=== PATIENT | male | born 2005 | race Caucasian/White ===

== ENCOUNTER 2023-01-05 11:50 | Inpatient (IN) | payer OTHER ==
[2023-01-05] MEDS ORDERED: HEPARIN SODIUM 1,000 UN/ML (10ML VL) IV PRN (12:28)
[2023-01-05] MEDS ORDERED: fentaNYL (PF) 50 MCG/ML 2 ML AMP IVP STA (12:29)
--- NOTE | 2023-01-05 12:40 | ED ---
SOB HPI - General Chief Complaint: Shortness of Breath Stated Complaint: PE Time Seen by Provider: 01/05/23 12:00 Source: patient, EMS Mode of arrival: EMS Limitations: no limitations - History of Present Illness Initial Comments: 17-year-old male with history of acetabular fracture while playing kickball at the end of November who presents to the emergency department from [facility]. Patient had surgery on the at [facility]. He has been residing at home and is nonweightbearing on the right lower extremity however is up with a walker. He was woken up at 3 AM this morning with significant pleuritic chest pain. He went into [facility] where CT was done there which demonstrates extensive pulmonary emboli present extending from the right main pulmonary artery to several segmental and subsegmental branches. Pulmonary blad ena also seen in the sacrum and subsegmental branches of the left lung. Right lower lobe peripheral groundglass opacities which may represent infarct. BNP was 49. Troponin 4.31 (normal value 0-76) - Related Data Home Medications Medication Instructions Recorded Confirmed oxyCODONE HCL [OxyIR] 5 mg PO Q6H PRN 01/05/23 01/08/23 Apixaban [Eliquis Starter Pack See Taper PO DIRECTED 01/08/23 01/08/23 (for VTE)] Previous Rx's Medication Instructions Recorded Acetaminophen Tab [Tylenol] 1,000 mg PO Q6HR PRN tab 01/07/23 traMADol HCl [Ultram] 50 mg PO QID PRN #9 tab 01/07/23 Levofloxacin [Levaquin] 750 mg PO DAILY 5 Days #5 tab 01/08/23 Allergies Allergy/AdvReac Type Severity Reaction Status Date / Time indomethacin Allergy Rash/Hives Verified 01/08/23 17:07 Review of Systems ROS Statement: Those systems with pertinent positive or pertinent negative responses have been documented in the HPI. ROS Other: All systems not noted in ROS Statement are negative. Past Medical History Past Medical History: No Reported History History of Any Multi-Drug Resistant Organisms: None Reported Past Surgical History: Orthopedic Surgery Past Psychological History: No Psychological Hx Reported Smoking Status: Never smoker Past Alcohol Use History: None Reported Past Drug Use History: None Reported - Past Family History Father Family Medical History: Hypertension Additional Family Medical History / Comment(s): skin CA General Exam Limitations: no limitations General appearance: alert, in no apparent distress Head exam: Present: atraumatic, normocephalic, normal inspection Eye exam: Present: normal appearance, PERRL, EOMI. Absent: scleral icterus, conjunctival injection, periorbital swelling ENT exam: Present: normal exam, mucous membranes moist Neck exam: Present: normal inspection. Absent: tenderness, meningismus, lymphadenopathy Respiratory exam: Present: normal lung sounds bilaterally. Absent: respiratory distress, wheezes, rales, rhonchi, stridor Cardiovascular Exam: Present: regular rate, normal rhythm, normal heart sounds. Absent: systolic murmur, diastolic murmur, rubs, gallop, clicks GI/Abdominal exam: Present: soft, normal bowel sounds. Absent: distended, tenderness, guarding, rebound, rigid Extremities exam: Present: normal inspection, full ROM, normal capillary refill. Absent: tenderness, pedal edema, joint swelling, calf tenderness Back exam: Present: normal inspection Neurological exam: Present: alert, oriented X3, CN II-XII intact Psychiatric exam: Present: normal affect, normal mood Skin exam: Present: warm, dry, intact, normal color. Absent: rash Course Vital Signs 01/05/23 01/05/23 01/05/23 11:57 15:09 15:33 Temperature 98.2 F 98.7 F Pulse Rate 72 76 Pulse Rate [ 77 Pulse Oximetery ] Respiratory 18 18 18 Rate Blood Pressure 118/79 117/70 Blood Pressure 121/63 [Right Arm] O2 Sat by Pulse 99 100 99 Oximetry - Reevaluation(s) Reevaluation #1: Dr. Liriano in ED to evaluate patient 01/05/23 12:40 Medical Decision Making - Medical Decision Making Was pt. sent in by a medical professional or institution (, PA, [employer] STRAIGHTENER, urgent care, hospital, or penitentiary...) When possible be specific @ -yes[facility] Did you speak to anyone other than the patient for history (EMS, parent, family, police, friend...)? What history was obtained from this source @ -Transferring physician Did you review nursing and triage notes (agree or disagree)? Why? @ -I reviewed and agree with nursing and triage notes Were old charts reviewed (outside hosp., previous admission, EMS record, old EKG, old radiological studies, urgent care reports/EKG's, penitentiary records)? Report findings @ -I reviewed chart from [facility] Differential Diagnosis (chest pain, altered mental status, abdominal pain women, abdominal pain men, vaginal bleeding, weakness, fever, dyspnea, syncope, headache, dizziness, GI bleed, back pain, seizure, CVA, palpatations, mental health, musculoskeletal)? @ -acs, stemi, nstemi, pe, dvt EKG interpreted by me (3pts min.). @ -Yes and demonstrates sinus rhythm with rate of 66. WA interval 172. QRS 98. QTC of 367. Inverted T waves with ST depression V1 and V2. ST elevation in 2, 3, aVF consistent with early re-pole X-rays interpreted by me (1pt min.). @ -no CT interpreted by me (1pt min.). @ -no U/S interpreted by me (1pt. min.). @ -yes, echo completed What testing was considered but not performed or refused? (CT, X-rays, U/S, labs)? Why? @ -None What meds were considered but not given or refused? Why? @ -None Did you discuss the management of the patient with other professionals (professionals i.e. DrMehul, PA, [employer] STRAIGHTENER, lab, RT, psych nurse, social work coordinator, chief legal officer, teacher, planned giving officer, outpatient case manager)? Give summary @ -yes, admitting physician Dr. polo and dr liriano Was smoking cessation discussed for >3mins.? @ -No Was critical care preformed (if so, how long)? @ -No Were there social determinants of health that impacted care today? How? (Ho melessness, low income, unemployed, alcoholism, drug addiction, transportation, low edu. Level, literacy, decrease access to med. care, skilled nursing, rehab)? @ -No Was there de-escalation of care discussed even if they declined (Discuss DNR or withdrawal of care, Hospice)? DNR status @ -No What co-morbidities impacted this encounter? (DM, HTN, Smoking, COPD, CAD, Cancer, CVA, ARF, Chemo, Hep., AIDS, mental health diagnosis, sleep apnea, morbid obesity)? @ -none Was patient admitted / discharged? Hospital course, mention meds given and route, prescriptions, significant lab abnormalities, going to OR and other pertinent info. @ -Upon arrival patient is placed in room 26. I did review his transfer packet. I repeat laboratory studies at our facility. He is saturating 100% on room air. Called and spoke with Dr. Liriano. He does present to the ED to evaluate the patient. Request a stat echo. Patient will be admitted to [facility]. Spoke with Dr. Polo who agreed to admit the patient. patient transferred to the floor in stable condition on a heparin drip Undiagnosed new problem with uncertain prognosis? @ -Yes Drug Therapy requiring intensive monitoring for toxicity (Heparin, Nitro, Insulin, Cardizem)? @ -yes, heparin Were any procedures done? @ -No Diagnosis/symptom? @ -acute chest pain, acute pe Acute, or Chronic, or Acute on Chronic? @ -acute Uncomplicated (without systemic symptoms) or Complicated (systemic symptoms)? @ -complicated Side effects of treatment? @ -allergic reaction, sedation, bleeding Exacerbation, Progression, or Severe Exacerbation? @ -No Poses a threat to life or bodily function? How? (Chest pain, [place], [place], pneumonia, PE, COPD, DKA, ARF, appy, cholecystitis, CVA, Diverticulitis, Homicidal, Suicidal, threat to staff... and all critical care pts) @ -yes - pe can cause heart strain - Lab Data Result diagrams: 01/06/23 07:04 01/06/23 07:04 Lab Results 01/05/23 01/05/23 01/05/23 Range/Units 12:59 12:59 12:59 WBC 6.7 (4.0-11.0) k/uL RBC 3.79 L (4.30-5.90) m/uL Hgb 12.1 L (13.0-17.5) gm/dL Hct 36.2 L (39.0-53.0) % MCV 95.5 (80.0-100.0) fL MCH 32.0 (25.0-35.0) pg MCHC 33.5 (31.0-37.0) g/dL RDW 13.3 (11.5-15.5) % Plt Count 223 (150-450) k/uL MPV 7.9 Neutrophils % 67 % Lymphocytes % 23 % Monocytes % 6 % Eosinophils % 3 % Basophils % 0 % Neutrophils # 4.5 (1.3-7.7) k/uL Lymphocytes # 1.5 (1.0-4.8) k/uL Monocytes # 0.4 (0-1.0) k/uL Eosinophils # 0.2 (0-0.7) k/uL Basophils # 0.0 (0-0.2) k/uL PT 11.3 (9.0-12.0) sec INR 1.1 (<1.2) APTT 39.4 H (22.0-30.0) sec Sodium 137 (137-145) mmol/L Potassium 4.6 (3.5-5.1) mmol/L Chloride 102 (98-107) mmol/L Carbon Dioxide 26 (22-30) mmol/L Anion Gap 9 mmol/L BUN 18 (9-20) mg/dL Creatinine 0.79 (0.66-1.25) mg/dL Est GFR (CKD-EPI)AfAm >90 (>60 ml/min/1.73 sqM) Est GFR (CKD-EPI)NonAf >90 (>60 ml/min/1.73 sqM) Glucose 93 (74-99) mg/dL Calcium 9.2 (8.4-10.2) mg/dL Total Bilirubin 0.7 (0.2-1.3) mg/dL AST 24 (17-59) U/L ALT 17 (4-49) U/L Alkaline Phosphatase 48 (38-126) U/L Troponin I (0.000-0.034) ng/mL NT-Pro-B Natriuret Pep pg/mL Total Protein 7.3 (6.3-8.2) g/dL Albumin 4.0 (3.5-5.0) g/dL 01/05/23 01/05/23 Range/Units 12:59 12:59 WBC (4.0-11.0) k/uL RBC (4.30-5.90) m/uL Hgb (13.0-17.5) gm/dL Hct (39.0-53.0) % MCV (80.0-100.0) fL MCH (25.0-35.0) pg MCHC (31.0-37.0) g/dL RDW (11.5-15.5) % Plt Count (150-450) k/uL MPV Neutrophils % % Lymphocytes % % Monocytes % % Eosinophils % % Basophils % % Neutrophils # (1.3-7.7) k/uL Lymphocytes # (1.0-4.8) k/uL Monocytes # (0-1.0) k/uL Eosinophils # (0-0.7) k/uL Basophils # (0-0.2) k/uL PT (9.0-12.0) sec INR (<1.2) APTT (22.0-30.0) sec Sodium (137-145) mmol/L Potassium (3.5-5.1) mmol/L Chloride (98-107) mmol/L Carbon Dioxide (22-30) mmol/L Anion Gap mmol/L BUN (9-20) mg/dL Creatinine (0.66-1.25) mg/dL Est GFR (CKD-EPI)AfAm (>60 ml/min/1.73 sqM) Est GFR (CKD-EPI)NonAf (>60 ml/min/1.73 sqM) Glucose (74-99) mg/dL Calcium (8.4-10.2) mg/dL Total Bilirubin (0.2-1.3) mg/dL AST (17-59) U/L ALT (4-49) U/L Alkaline Phosphatase (38-126) U/L Troponin I <0.012 (0.000-0.034) ng/mL NT-Pro-B Natriuret Pep 48 pg/mL Total Protein (6.3-8.2) g/dL Albumin (3.5-5.0) g/dL Disposition Clinical Impression: Pleuritic chest pain, Pulmonary embolism and infarction Disposition: ADMITTED IP TO THIS HOSP Condition: Fair Is patient prescribed a controlled substance at d/c from ED?: No Time of Disposition: 12:37 Decision to Admit Reason: Admit from EC Decision Date: 01/05/23 Decision Time: 12:37
[2023-01-05 13:11] LABS: Basophils % (A) 0 %; Eosinophils # (A) 0.2 k/uL (0-0.7); Eosinophils % (A) 3 %; HCT 36.2 % (39.0-53.0); HGB 12.1 gm/dL (13.0-17.5); Lymphocytes # (A) 1.5 k/uL (1.0-4.8); Lymphocytes % (A) 23 %; MCHC 33.5 g/dL (31.0-37.0); MCV 95.5 fL (80.0-100.0); Mean Platelet Volume 7.9; Monocytes # (A) 0.4 k/uL (0-1.0); Monocytes % (A) 6 %; Neutrophils # (A) 4.5 k/uL (1.3-7.7); Neutrophils % (A) 67 %; Platelet Count 223 k/uL (150-450); RBC 3.79 m/uL (4.30-5.90); RDW 13.3 % (11.5-15.5); WBC 6.7 k/uL (4.0-11.0)
[2023-01-05] MEDS: HEPARIN SOD,PORK IN 0.45% NACL 25,000 UNIT in 0.45% NACL 1 250ML.BAG IV SCH (13:13)
[2023-01-05 13:28] LABS: INR 1.1 (<1.2); Partial Thromboplastin Time 39.4 sec (22.0-30.0); Prothrombin Time 11.3 sec (9.0-12.0)
[2023-01-05 13:58] LABS: ALT 17 U/L (4-49); AST 24 U/L (17-59); African American GFR (CKD) >90 (>60 ml/min/1.73 sqM); Alkaline Phosphatase 48 U/L (38-126); Anion Gap 9 mmol/L; Blood Urea Nitrogen 18 mg/dL (9-20); Calcium 9.2 mg/dL (8.4-10.2); Carbon Dioxide 26 mmol/L (22-30); Chloride 102 mmol/L (98-107); Glucose 93 mg/dL (74-99); Non-African American GFR(CKD) >90 (>60 ml/min/1.73 sqM); Potassium 4.6 mmol/L (3.5-5.1); Sodium 137 mmol/L (137-145); Total Bilirubin 0.7 mg/dL (0.2-1.3); Total Protein 7.3 g/dL (6.3-8.2)
[2023-01-05] MEDS ORDERED: NALOXONE 0.4 MG/ML 1 ML VIAL IV PRN (14:21)
[2023-01-05] MEDS ORDERED: ACETAMINOPHEN TAB 500 MG TAB PO PRN (15:06)
--- NOTE | 2023-01-05 15:10 | P.HPIM ---
History of Present Illness 17-year-old the male came in with pleuritic chest pain found to have a extensive pulmonary emboli extending from the right main pulmonary artery to cervical segmental and subsegmental branches, right lower lobe peripheral groundglass appearance and possible pulmonary infarct, troponins and are not elevated. Patient had an acetabular fracture while playing pickle ball recently and had a surgery for that about a week ago. Patient a pleasant chest pain is 5/10 in severity. No evidence of right heart strain at this time but echocardiogram is being obtained. Patient is on IV heparin REVIEW OF SYSTEMS: CONSTITUTIONAL: No fever, no malaise, no fatigue. HEENT: No recent visual problems or hearing problems. Denied any sore throat. CARDIOVASCULAR: No orthopnea, PND, no palpitations, no syncope. PULMONARY: No shortness of breath, no cough, no hemoptysis. GASTROINTESTINAL: No diarrhea, no nausea, no vomiting, no abdominal pain. NEUROLOGICAL: No headaches, no weakness, no numbness. HEMATOLOGICAL: Denies any bleeding or petechiae. GENITOURINARY: Denies any burning micturition, frequency, or urgency. MUSCULOSKELETAL/RHEUMATOLOGICAL: Denies any joint pain, swelling, or any muscle pain. ENDOCRINE: Denies any polyuria or polydipsia. The rest of the 14-point review of systems is negative. PHYSICAL EXAMINATION: GENERAL: The patient is alert and oriented x3, not in any acute distress. Well developed, well nourished. HEENT: Pupils are round and equally reacting to light. EOMI. No scleral icterus. No conjunctival pallor. Normocephalic, atraumatic. No pharyngeal erythema. No thyromegaly. CARDIOVASCULAR: S1 and S2 present. No murmurs, rubs, or gallops. PULMONARY: Chest is clear to auscultation, no wheezing or crackles. ABDOMEN: Soft, nontender, nondistended, normoactive bowel sounds. No palpable organomegaly. MUSCULOSKELETAL: No joint swelling or deformity. EXTREMITIES: No cyanosis, clubbing, or pedal edema. NEUROLOGICAL: Gross neurological examination did not reveal any focal deficits. SKIN: No rashes. Assessment and plan -Pulmonary embolism: Secondary to recent surgery. Patient will be continued on IV heparin. Echocardiogram will be obtained, cardiology was consulted to evaluate for EKOS. -GI prophylaxis with Pepcid Past Medical History Past Medical History: No Reported History History of Any Multi-Drug Resistant Organisms: None Reported Past Surgical History: Orthopedic Surgery Past Psychological History: No Psychological Hx Reported Smoking Status: Never smoker Past Alcohol Use History: None Reported Past Drug Use History: None Reported Medications and Allergies Home Medications Medication Instructions Recorded Confirmed Type Acetaminophen Tab [Tylenol] 650 mg PO Q4H PRN 01/05/23 01/05/23 History Aspirin EC [Ecotrin Low Dose] 81 mg PO DAILY 01/05/23 01/05/23 History Ondansetron [Zofran] 4 mg PO DAILY PRN 01/05/23 01/05/23 History oxyCODONE HCL [OxyIR] 5 mg PO Q6H PRN 01/05/23 01/05/23 History Allergies Allergy/AdvReac Type Severity Reaction Status Date / Time No Known Allergies Allergy Verified 01/05/23 13:28 Physical Exam Vitals: Vital Signs Temp Pulse Resp BP Pulse Ox 01/05/23 11:57 98.2 F 72 18 118/79 99 Intake and Output 01/05/23 01/05/23 01/05/23 06:59 14:59 22:59 Other: Weight 69.853 kg Results CBC & Chem 7: 01/05/23 12:59 01/05/23 12:59 Labs: Abnormal Lab Results - Last 24 Hours (Table) 01/05/23 01/05/23 Range/Units 12:59 12:59 RBC 3.79 L (4.30-5.90) m/uL Hgb 12.1 L (13.0-17.5) gm/dL Hct 36.2 L (39.0-53.0) % APTT 39.4 H (22.0-30.0) sec
[2023-01-05] MEDS: traMADol 50 MG TAB PO PRN ×2 (15:29→21:53)
[2023-01-05] MEDS ORDERED: HYDROcodone/APAP 10-325MG 1 EACH TAB PO PRN (16:29)
[2023-01-05] MEDS: FAMOTIDINE 20 MG TAB PO SCH (20:13)
[2023-01-06] MEDS: traMADol 50 MG TAB PO PRN (06:09)
[2023-01-06 08:04] LABS: Basophils % (A) 0 %; Eosinophils # (A) 0.2 k/uL (0-0.7); Eosinophils % (A) 2 %; HCT 37.6 % (39.0-53.0); HGB 12.4 gm/dL (13.0-17.5); Lymphocytes % (A) 12 %; MCH 31.6 pg (25.0-35.0); MCV 95.8 fL (80.0-100.0); Monocytes # (A) 0.4 k/uL (0-1.0); Monocytes % (A) 5 %; Neutrophils % (A) 81 %; Platelet Count 223 k/uL (150-450); RBC 3.92 m/uL (4.30-5.90); RDW 12.9 % (11.5-15.5); WBC 8.7 k/uL (4.0-11.0)
[2023-01-06 08:21] LABS: African American GFR (CKD) >90 (>60 ml/min/1.73 sqM); Anion Gap 10 mmol/L; Blood Urea Nitrogen 17 mg/dL (9-20); Calcium 9.1 mg/dL (8.4-10.2); Carbon Dioxide 26 mmol/L (22-30); Chloride 99 mmol/L (98-107); Glucose 92 mg/dL (74-99); Non-African American GFR(CKD) >90 (>60 ml/min/1.73 sqM); Potassium 4.2 mmol/L (3.5-5.1); Sodium 135 mmol/L (137-145)
[2023-01-06] MEDS: FAMOTIDINE 20 MG TAB PO SCH ×2 (09:02→20:10)
[2023-01-06] MEDS: HEPARIN SOD,PORK IN 0.45% NACL 25,000 UNIT in 0.45% NACL 1 250ML.BAG IV SCH ×2 (09:02→23:38)
--- NOTE | 2023-01-06 11:42 | CA ---
Transthoracic Echo Report Name: Yovani Parra Age: 17 Gender: M : 2005 Exam Date: 01/05/2023 13:10 Exam Location: [place] [facility] Ht (in): 76 Wt (lb): 154 Ordering Physician: Phuong Barron DO Attending/Referring Phys: [id number], Anderson Relaster Alex Pan Procedure CPT: Indications: pulm embolism Cardiac Hx: Technical Quality: Good Contrast 1: Total Dose (mL): Contrast 2: Total Dose (mL): MEASUREMENTS (Male / Female) Normal Values 2D ECHO LV Diastolic Diameter PLAX 4.4 cm 4.2 - 5.9 / 3.9 - 5.3 cm LV Systolic Diameter PLAX 2.7 cm IVS Diastolic Thickness 1.1 cm 0.6 - 1.0 / 0.6 - 0.9 cm LVPW Diastolic Thickness 1.2 cm 0.6 - 1.0 / 0.6 - 0.9 cm LV Relative Wall Thickness 0.5 RV Internal Dim ED PLAX 3.0 cm LVOT Diameter 2.0 cm Aortic Root Diameter 2.7 cm LA Systolic Diameter LX 2.9 cm 3.0 - 4.0 / 2.7 - 3.8 cm LV Diastolic Volume MOD BP 92.1 cm??? 67 - 155 / 56 - 104 cm??? LV Systolic Volume MOD BP 34.5 cm??? 22 - 58 / 19 - 49 cm??? LV Ejection Fraction MOD BP 62.5 % >= 55 % LV Diastolic Volume MOD 4C 101.2 cm??? LV Systolic Volume MOD 4C 38.8 cm??? LV Ejection Fraction MOD 4C 61.7 % LV Diastolic Length 4C 9.6 cm LV Systolic Length 4C 8.7 cm LV Diastolic Volume MOD 2C 83.4 cm??? LV Systolic Volume MOD 2C 29.0 cm??? LV Ejection Fraction MOD 2C 65.2 % LV Diastolic Length 2C 9.4 cm LV Systolic Length 2C 8.2 cm LA Volume 56.6 cm??? 18 - 58 / 22 - 52 cm??? Ascending Aorta Diameter 2.7 cm DOPPLER AV Peak Velocity 147.6 cm/s AV Peak Gradient 8.7 mmHg AI Peak Velocity 234.2 cm/s AI Peak Gradient 21.9 mmHg AI Pressure Half Time 483.4 ms LVOT Peak Velocity 106.4 cm/s LVOT Peak Gradient 4.5 mmHg AV Area Cont Eq pk 2.3 cm??? MV Peak Velocity 115.1 cm/s MV Peak Gradient 5.3 mmHg MV Mean Velocity 64.0 cm/s MV Mean Gradient 2.0 mmHg MV Velocity Time Integral 32.8 cm MR Peak Velocity 294.8 cm/s MR Peak Gradient 34.8 mmHg Mitral E Point Velocity 94.4 cm/s Mitral A Point Velocity 41.6 cm/s Mitral E to A Ratio 2.3 MV Deceleration Time 315.2 ms MV E' Velocity 15.1 cm/s Mitral E to MV E' Ratio 6.3 TR Peak Velocity 285.1 cm/s TR Peak Gradient 32.5 mmHg Right Ventricular Systolic Press 37.5 mmHg FINDINGS Left Ventricle Left ventricular ejection fraction is estimated at 55-60 %.left ventricular cavity size normal. Normal left ventricular wall motion. Right Ventricle Normal right ventricular size. RVSP=37mmhg Right Atrium Normal right atrial size. Left Atrium Normal left atrial size. Mitral Valve Structurally normal mitral valve. Trace MR. Aortic Valve Trileaflet aortic valve. Mild AI. Tricuspid Valve Structurally normal tricuspid valve. Mild TR. RVSP= 37mmhg Pulmonic Valve Structurally normal pulmonic valve. Mild PI. Pericardium Normal pericardium. Aorta Normal size aortic root and proximal ascending aorta. CONCLUSIONS 1. Normal left ventricular size and systolic function 2. Normal right ventricular size and function with mild pulmonary hypertension 3. Mild aortic, pulmonic and tricuspid regurgitation Previewed by: Dr. Zayda Winters MD (Electronically Signed) Final Date: 06 January 2023 11:41
--- NOTE | 2023-01-06 11:56 | CONS ---
CONSULTATION HISTORY OF PRESENT ILLNESS: This is a 17-year-old gentleman, who was transferred here from [facility]. He apparently about December 13 or so, had an acetabular fracture while playing kickball and underwent surgery at [facility] on the , and was up and about on a walker, but has not been weightbearing on the right lower extremity, and he woke up at 3 a.m., yesterday with pleuritic chest pain and went to [facility]. CAT scan revealed multiple pulmonary emboli including the right as well as on the left side. There was no strain pattern noted. He was transferred here. I saw the patient in the emergency room yesterday, evaluated him, and suggested IV heparin, but no other intervention since there was no evidence of any strain pattern. His pain was mostly pleuritic pain as a result of pulmonary embolism, for which, pain medication was advised. Echo revealed normal systolic function. No right ventricular enlargement. No significant pulmonary hypertension. The patient is not a smoker; has been, however, sedentary and nonweightbearing. I evaluated him again this morning. He is comfortable. His pain is less, has no chest discomfort. PHYSICAL EXAMINATION: VITAL SIGNS: Normal. Blood pressure is 118/70, pulse rate is about 74 per minute. HEENT: Unremarkable. Fundus was not examined by me. NECK: Supple. No JVD. I do not hear any carotid bruit. HEART: Reveals S1 and S2 heard normally. No significant rub, murmur, or gallop. LUNGS: Reveal bilateral diminished air entry. The patient is splinting a bit, but no pleural rub. ABDOMEN: Soft and nontender. EXTREMITIES: Lower extremities reveal diminished pulses. CENTRAL NERVOUS SYSTEM: Grossly within normal limits. IMPRESSION: 1. Acute pulmonary embolism in the setting of being sedentary and nonweightbearing. No evidence of any pulmonary strain. 2. Recent acetabular fracture with surgery on December 13. RECOMMENDATIONS: I am recommending IV heparin and Eliquis and discharge and pain control. No other intervention is necessary. He will need to be on anticoagulation at least for 3 to 6 months, and further management will be per his primary care physician. I am recommending 6 months of anticoagulation. He will be on IV heparin for now. We will switch him to Eliquis hopefully tomorrow. MMODL / IJN: [id number] /
--- NOTE | 2023-01-06 14:50 | P.PN ---
Subjective Progress Note Date: 01/06/23 17-year-old the male came in with pleuritic chest pain found to have a extensive pulmonary emboli extending from the right main pulmonary artery to cervical segmental and subsegmental branches, right lower lobe peripheral groundglass appearance and possible pulmonary infarct, troponins and are not elevated. Patient had an acetabular fracture while playing pickle ball recently and had a surgery for that about a week ago. Patient a pleasant chest pain is 5/10 in severity. No evidence of right heart strain at this time but echocardiogram is being obtained. Patient is on IV heparin 01/06/2023 Patient is seen and evaluated in follow-up this morning maintained on IV heparin with cardiology following. 2-D echo shows no evidence of right heart strain and cardiology recommending monitoring overnight on IV heparin and will initiate oral anticoagulant in the a.m. in the form of Eliquis. Patient denies shortness of breath although continues with severe pain with inspiration and movement. Patient has not been up and out of the bed much at all. Patient was also nothing by mouth and will initiate diet as there are no indications for any surgical intervention at this time. Patient is afebrile continues with chest wall pain and denies shortness of breath. Will adjust pain medications. En couraged increased activity as tolerated. Review of systems: Constitutional: No reports of fatigue, fever, or chills Cardiovascular: No reports of chest pain or palpitations, reports chest wall pain with inspiration and movement Respiratory: No reports of shortness of breath or cough GI: No reports of nausea, vomiting, or diarrhea : No reports of dysuria or retention Neurovascular: reports of generalized weakness All medications have been reviewed PHYSICAL EXAMINATION: GENERAL: The patient is alert and oriented x3, not in any acute distress. Well developed, well nourished. Thin built HEENT: Pupils are round and equally reacting to light. EOMI. No scleral icterus. No conjunctival pallor. Normocephalic, atraumatic. No pharyngeal erythema. No thyromegaly. CARDIOVASCULAR: S1 and S2 present. No murmurs, rubs, or gallops. PULMONARY: Chest is clear to auscultation, no wheezing or crackles. ABDOMEN: Soft, nontender, nondistended, normoactive bowel sounds. No palpable organomegaly. MUSCULOSKELETAL: No joint swelling or deformity. EXTREMITIES: No cyanosis, clubbing, or pedal edema. NEUROLOGICAL: Gross neurological examination did not reveal any focal deficits. Generalized weakness and nonweightbearing of the right lower extremity SKIN: No rashes. Assessment: -Pulmonary embolism: Secondary to recent surgery. Patient will be continued on IV heparin. Echocardiogramwith no evidence of right heart strain per cardiology and will be initiated on oral anticoagulant in the a.m. -Recent right acetabular fracture with surgery in November 2022 -GI prophylaxis with Pepcid Plan: Recommend continue monitoring overnight on IV heparin per cardiology recommendations and we'll transition to oral anticoagulant. Discussed with case management and patient has Medicaid which covers Eliquis Will provide resources for primary care providers as he currently does not have a family practice doctor Patient continues to report severe pain with no real relief and we'll transition to Percocet and continue with Ultram as needed Encouraged increased activity as tolerated with continued nonweightbearing of the right lower extremity from recent surgery Patient and mother also instructed to follow-up with orthopedics who performed the surgery out of [facility] in one week. Probable discharge in 24 hours The impression and plan of care has been dictated by Dviya Mcbride, Nurse Practitioner as directed. Dr. Melani MD I have performed a history and examination and MDM of this patient, discussed the same with the dictator, and agree with the dictator's assessment and plan as written ,documented as a scribe. Based on total visit time, I have performed more than 50% of the visit. Objective - Vital Signs Vital signs: Vital Signs Temp 98.5 F 01/05/23 23:56 Pulse 72 01/06/23 04:00 Resp 22 01/06/23 04:00 BP 115/70 01/06/23 04:00 Pulse Ox 97 01/06/23 04:00 FiO2 Intake & Output 01/05/23 01/06/23 01/06/23 18:59 06:59 18:59 Intake Total 87.808 Output Total 450 Balance -362.192 Weight 69.853 kg Intake: Intake, IV Titration 87.808 Amount Heparin Sod,Pork in 0.45% 87.808 NaCl 25,000 unit In 0.45 % NaCl 1 250ml.bag @ 18 UNITS/KG/HR 12.574 mls/hr IV .[id number] [facility] Rx#: [id number] Output: Urine 450 Other: Voiding Method Toilet Urinal # Voids 0 0 - Labs CBC & Chem 7: 01/06/23 07:04 01/06/23 07:04 Labs: Abnormal Lab Results - Last 24 Hours (Table) 01/05/23 01/05/23 01/06/23 Range/Units 12:59 12:59 02:09 RBC 3.79 L (4.30-5.90) m/uL Hgb 12.1 L (13.0-17.5) gm/dL Hct 36.2 L (39.0-53.0) % APTT 39.4 H 66.5 H (22.0-30.0) sec Sodium (137-145) mmol/L 01/06/23 01/06/23 01/06/23 Range/Units 07:04 07:04 07:04 RBC 3.92 L (4.30-5.90) m/uL Hgb 12.4 L (13.0-17.5) gm/dL Hct 37.6 L (39.0-53.0) % APTT 52.3 H (22.0-30.0) sec Sodium 135 L (137-145) mmol/L
[2023-01-06] MEDS: oxyCODONE-APAP 10-325MG 1 EACH TAB PO PRN ×2 (15:53→22:34)
[2023-01-07 04:27] VITALS: RESP 18
[2023-01-07] MEDS: FAMOTIDINE 20 MG TAB PO SCH (07:55)
[2023-01-07 07:56] VITALS: BP 117/71; PULSE 98; TEMP 98.4
[2023-01-07] MEDS: oxyCODONE-APAP 10-325MG 1 EACH TAB PO PRN ×2 (07:56→17:00)
[2023-01-07] MEDS: HEPARIN SOD,PORK IN 0.45% NACL 25,000 UNIT in 0.45% NACL 1 250ML.BAG IV SCH (07:57)
[2023-01-07] MEDS: traMADol 50 MG TAB PO PRN (11:03)
--- NOTE | 2023-01-07 11:45 | P.PN ---
Subjective Progress Note Date: 01/07/23 HISTORY OF PRESENT ILLNESS: This is a 17-year-old male who is admitted to the hospital secondary to pulmonary embolism. Patient examined this for the bedside. He denies chest pain or pressure. Denies shortness of breath. He remains on IV heparin. Vital signs are stable. PHYSICAL EXAM: VITAL SIGNS: Reviewed. GENERAL: Well-developed in no acute distress. NECK: Supple. No JVD or thyromegaly LUNGS: Respirations even and unlabored. Lungs essentially clear to auscultation bilaterally. HEART: Regular rate and rhythm. S1 and S2 heard. EXTREMITIES: Normal range of motion. No clubbing or cyanosis. Peripheral pulses intact. No lower extremity edema ASSESSMENT: Acute pulmonary embolism Recent right acetabular fracture with surgery in November 2022 PLAN: Discontinue IV heparin. Transition to oral anticoagulation this morning Patient is stable for discharge home today from a cardiac standpoint with close outpatient follow-up. Nurse practitioner note has been reviewed by physician. Signing provider agrees with the documented findings, assessment, and plan of care. Objective - Vital Signs Vital signs: Vital Signs Temp 98.4 F 01/07/23 07:55 Pulse 98 01/07/23 07:55 Resp 18 01/07/23 08:00 BP 117/71 01/07/23 07:55 Pulse Ox 99 01/07/23 07:55 FiO2 Intake & Output 01/06/23 01/07/23 01/07/23 18:59 06:59 18:59 Intake Total 240 700 Output Total 600 700 Balance -360 0 Intake: Intake, IV Titration 250 Amount Heparin Sod,Pork in 0.45% 250 NaCl 25,000 unit In 0.45 % NaCl 1 250ml.bag @ 18 UNITS/KG/HR 12.574 mls/hr IV .[id number] [facility] Rx#: [id number] Oral 240 450 Output: Urine 600 700 Other: Voiding Method Urinal Urinal - Labs CBC & Chem 7: 01/06/23 07:04 01/06/23 07:04 Labs: Abnormal Lab Results - Last 24 Hours (Table) 01/07/23 Range/Units 07:59 APTT 40.9 H (22.0-30.0) sec
[2023-01-07] MEDS ORDERED: Apixaban Initiation Dose--VTE 5 MG TAB PO SCH (12:00)
--- NOTE | 2023-01-10 06:26 | P.DS ---
Providers Date of admission: 01/05/23 14:32 Expected date of discharge: 01/07/23 Attending physician: Colton Polo Consults: 01/05/23 14:23 Consult Physician Urgent Consulting Provider: [facility] Consult Reason/Comments: bilateral pe Do you want consulting provider notified?: Already Contacted Primary care physician: Stated None Hospital Course: Final diagnosis -Pulmonary embolism: Secondary to recent surgery. Echocardiogram with no evidence of right heart strain per cardiology -Recent right acetabular fracture with surgery in November 2022 -GI prophylaxis -Full code Discharge disposition Patient is being discharged in a stable condition with guarded prognosis to home. Patient will follow-up with Dr. Mendoza to establish in the outpatient setting upon discharge. Patient is to continue with oral Eliquis milligrams twice daily for 1 week and then titrate down to 5 mg twice daily thereafter and close outpatient follow-up with cardiology as scheduled. Total time taken is greater than 35 minutes. Hospital course This is a 17-year-old male who was recently admitted with chest pain and difficulty with inspiration found to have pulmonary embolism most likely secondary to recent right acetabular fracture with surgical intervention in November 2022. Patient has been nonweightbearing of the right using a walker although sedentary. Echo reveals no evidence of right heart strain cardiology recommending oral anticoagulation. Encouraged incentive spirometer use at least 10 times every hour as patient is not taking deep breaths and minimal movement throughout most of the day. Patient has been cleared by cardiology for discharge home. Please refer to cardiology no for further HPI. Patient does not currently have a primary care provider and resources were provided to establish with one. Recommend pulmonary follow-up outpatient as well. Currently no reports of chest pain, shortness of breath, or palpitations. Patient is afebrile. No reports of nausea or vomiting and patient is tolerating diet. Patient will be discharged home today. Physical exam: Gen: This is a 17-year-old male who is awake, alert and oriented 3, thin built, well-developed HEENT: Head is atraumatic, normocephalic. Pupils equal, round. Sclerae is anicteric. NECK: Supple. No JVD. No lymphadenopathy. No thyromegaly. LUNGS: Minimal inspiration otherwise Clear to auscultation. No wheezes or rhonchi. No intercostal retractions. HEART: Regular rate and rhythm. No murmur. ABDOMEN: Soft. Bowel sounds are present. No masses. No tenderness. EXTREMITIES: No pedal edema. No calf tenderness. NEUROLOGICAL: Patient is awake, alert and oriented x3. Cranial nerves 2 through 12 are grossly intact. Please refer to medication reconciliation sheet for a list of medications. The impression and plan of care has been dictated by Divya Mcbride, Nurse Practitioner as directed. Dr. Melani MD I have performed a history and examination and MDM of this patient, discussed the same with the dictator, and agree with the dictator's assessment and plan as written ,documented as a scribe. Based on total visit time, I have performed more than 50% of the visit. Patient Condition at Discharge: Fair Plan - Discharge Summary Discharge Rx Participant: Yes New Discharge Prescriptions: New Acetaminophen Tab [Tylenol] 1,000 mg PO Q6HR PRN tab PRN Reason: Fever And/ Or Pain traMADol HCl [Ultram] 50 mg PO QID PRN #9 tab PRN Reason: Pain/Discomfort Continue oxyCODONE HCL [OxyIR] 5 mg PO Q6H PRN PRN Reason: Pain Discontinued Aspirin EC [Ecotrin Low Dose] 81 mg PO DAILY Ondansetron [Zofran] 4 mg PO DAILY PRN PRN Reason: Nausea Acetaminophen Tab [Tylenol] 650 mg PO Q4H PRN PRN Reason: Pain No Action Apixaban [Eliquis Starter Pack (for VTE)] See Taper PO DIRECTED Levofloxacin [Levaquin] 750 mg PO DAILY 5 Days #5 tab Discharge Medication List oxyCODONE HCL [OxyIR] 5 mg PO Q6H PRN 01/05/23 [History] Acetaminophen Tab [Tylenol] 1,000 mg PO Q6HR PRN tab 01/07/23 [Rx] traMADol HCl [Ultram] 50 mg PO QID PRN #9 tab 01/07/23 [Rx] Apixaban [Eliquis Starter Pack (for VTE)] See Taper PO DIRECTED 01/08/23 [History] Levofloxacin [Levaquin] 750 mg PO DAILY 5 Days #5 tab 01/08/23 [Rx] Follow up Appointment(s)/Referral(s): Whitney Mendoza MD [STAFF PHYSICIAN] - 1 Week Patient Instructions/Handouts: Pulmonary Embolism (DC) Activity/Diet/Wound Care/Special Instructions: Activity Limited until follow-up Follow-up with primary care provider to establish Follow-up with orthopedics as previously scheduled Continue Eliquis 10 mg twice daily for the next 1 week and then transition to 5 mg twice daily thereafter Discharge Disposition: HOME SELF-CARE
== END 2023-01-07 17:44 | disposition home or self-care (01) | DRG 197 ==
LOC: EC 11:51 → OBSVTOIN 14:32 → 3SCARD 14:32
PROVIDERS: ADMIT Internal Medicine; ATTEND Internal Medicine
DX: T81.718A Complication of other artery following a procedure, not elsewhere classified, initial encounter (principal); I26.94 Multiple subsegmental thrombotic pulmonary emboli without acute cor pulmonale; S32.401D Unspecified fracture of right acetabulum, subsequent encounter for fracture with routine healing; Z79.82 Long term (current) use of aspirin; Z28.310 Unvaccinated for COVID-19
CPT/HCPCS: 36415; 80048; 80053; 83880; 84484; 85025; 85610; 85730; 93005; 93306; 96365; 96366; 96375; 99285

== ENCOUNTER 2023-01-08 12:54 | Emergency (ER) | payer OTHER ==
[2023-01-08] MEDS ORDERED: FAMOTIDINE 20 MG/2 ML VIAL IV STA (16:42)
[2023-01-08] MEDS ORDERED: SODIUM CHLORIDE 0.9% 500 ML 500 ML IV STA (16:42)
[2023-01-08] MEDS ORDERED: fentaNYL (PF) 50 MCG/ML 2 ML AMP IVP STA (16:42)
--- NOTE | 2023-01-08 16:46 | ED ---
General Adult HPI - General Chief complaint: GI Bleed Stated complaint: Coughing up Blood sent by Time Seen by Provider: 01/08/23 16:32 Source: patient, family (mom), RN notes reviewed, old records reviewed Mode of arrival: wheelchair Limitations: no limitations - History of Present Illness Initial comments: 17-year-old male presents to the emergency room with his mother with complaints of right-sided chest pain radiating into his back and coughing up a dime-sized clots of blood. Was just discharged from the hospital yesterday with a embolism on the right. He was prescribed eloquent's which she has been taking. Denies any other abnormal bleeding. Patient states injured his right leg December 16 and was seen on the urine and had surgery. Patient states had surgery on December 16 for right fracture. Denies any fevers. -: days(s) (1) Location: chest (right side) Radiation: back (right side) Severity scale (1-10): 6 Quality: constant Consistency: constant Improves with: none Associated Symptoms: chest pain, nausea/vomiting (no vomiting), shortness of breath Treatments Prior to Arrival: other (eliquis d/c with right PE yesterday) - Related Data Home Medications Medication Instructions Recorded Confirmed oxyCODONE HCL [OxyIR] 5 mg PO Q6H PRN 01/05/23 01/08/23 Apixaban [Eliquis Starter Pack See Taper PO DIRECTED 01/08/23 01/08/23 (for VTE)] Previous Rx's Medication Instructions Recorded Acetaminophen Tab [Tylenol] 1,000 mg PO Q6HR PRN tab 01/07/23 traMADol HCl [Ultram] 50 mg PO QID PRN #9 tab 01/07/23 Levofloxacin [Levaquin] 750 mg PO DAILY 5 Days #5 tab 01/08/23 Allergies Allergy/AdvReac Type Severity Reaction Status Date / Time indomethacin Allergy Rash/Hives Verified 01/08/23 17:07 Review of Systems ROS Statement: Those systems with pertinent positive or pertinent negative responses have been documented in the HPI. ROS Other: All systems not noted in ROS Statement are negative. Past Medical History Past Medical History: Pulmonary Embolus (PE) Additional Past Medical History / Comment(s): right hip fx History of Any Multi-Drug Resistant Organisms: None Reported Past Surgical History: Orthopedic Surgery Additional Past Surgical History / Comment(s): right hip fracture repair Past Anesthesia/Blood Transfusion Reactions: No Reported Reaction Past Psychological History: No Psychological Hx Reported Smoking Status: Never smoker Past Alcohol Use History: None Reported Past Drug Use History: None Reported - Past Family History Father Family Medical History: Hypertension Additional Family Medical History / Comment(s): skin CA General Exam Limitations: no limitations General appearance: alert, in no apparent distress Head exam: Present: atraumatic Eye exam: Present: normal appearance. Absent: scleral icterus, conjunctival injection, periorbital swelling Neck exam: Present: full ROM. Absent: tenderness, meningismus Respiratory exam: Present: decreased breath sounds (right). Absent: respiratory distress, wheezes, rales, rhonchi, stridor, chest wall tenderness, accessory muscle use Cardiovascular Exam: Present: regular rate, normal rhythm GI/Abdominal exam: Present: soft Extremities exam: Present: normal capillary refill. Absent: pedal edema Neurological exam: Present: alert, oriented X3 Psychiatric exam: Present: normal affect, normal mood Skin exam: Present: warm, intact, normal color. Absent: cyanosis, diaphoretic, petechiae, pallor Course Vital Signs 01/08/23 01/08/23 01/08/23 13:03 15:55 17:07 Temperature 98.3 F Pulse Rate 86 85 85 Respiratory 18 18 18 Rate Blood Pressure 106/65 117/68 111/62 O2 Sat by Pulse 98 95 98 Oximetry 01/08/23 18:39 Temperature 101.8 F H Pulse Rate 81 Respiratory 20 Rate Blood Pressure 119/57 O2 Sat by Pulse 98 Oximetry EKG Findings - EKG Results: EKG: interpreted by ERMD, sinus rhythm (EKG interpreted by me shows ventricular rate of 84, NC interval 0.162, QRS 0.101, QTC 0.376, sinus rhythm no concerning change compared to old dated 01/06/2023) Medical Decision Making - Medical Decision Making Was pt. sent in by a medical professional or institution (, PA, SOCIETY REPORTER, urgent care, hospital, or retirement...) When possible be specific @ -Dr. Adamson Did you speak to anyone other than the patient for history (EMS, parent, family, police, friend...)? What history was obtained from this source @ -Mother, history of previous illnesses, surgery and recent discharge Did you review nursing and triage notes (agree or disagree)? Why? @ -I reviewed and agree with nursing and triage notes Were old charts reviewed (outside hosp., previous admission, EMS record, old EKG, old radiological studies, urgent care reports/EKG's, retirement records)? Report findings @ -ES previous computed tomography scan and discharge notes including EKG Differential Diagnosis (chest pain, altered mental status, abdominal pain women, abdominal pain men, vaginal bleeding, weakness, fever, dyspnea, syncope, heada ricki, dizziness, GI bleed, back pain, seizure, CVA, palpatations, mental health, musculoskeletal)? @ -Differential Dyspnea: Coronary syndrome, arrhythmia, tamponade, asthma, COPD, pulmonary embolism, pneumonia, pneumothorax, pulmonary effusion, anaphylaxis, diabetic ketoacidosis, flailed chest, pulmonary contusion, diaphragmatic rupture, anemia, neuromuscular, this is not meant to be an all-inclusive list. EKG interpreted by me (3pts min.). @ -yes EKG interpreted by me shows ventricular rate of 84, NC interval 0.162, QRS 0.101, QTC 0.376, sinus rhythm no concerning change compared to old dated 01/06/2023 X-rays interpreted by me (1pt min.). @ -yes Chest x-ray interpreted by me shows a right lower lobe consolidation. CT interpreted by me (1pt min.). @ -None done U/S interpreted by me (1pt. min.). @ -None done What testing was considered but not performed or refused? (CT, X-rays, U/S, labs)? Why? @ -None What meds were considered but not given or refused? Why? @ -None Did you discuss the management of the patient with other professionals (professionals i.e. , PA, SOCIETY REPORTER, lab, RT, psych nurse, social media community manager, informaticist, teacher, classification officer, case supervisor)? Give summary @ -No Was smoking cessation discussed for >3mins.? @ -No Was critical care preformed (if so, how long)? @ -No Were there social determinants of health that impacted care today? How? (Homelessness, low income, unemployed, alcoholism, drug addiction, transportation, low edu. Level, literacy, decrease access to med. care, long term, rehab)? @ -No Was there de-escalation of care discussed even if they declined (Discuss DNR or withdrawal of care, Hospice)? DNR status @ -No What co-morbidities impacted this encounter? (DM, HTN, Smoking, COPD, CAD, Canc er, CVA, ARF, Chemo, Hep., AIDS, mental health diagnosis, sleep apnea, morbid obesity)? @ -PE, right acetabular fracture Was patient admitted / discharged? Hospital course, mention meds given and route, prescriptions, significant lab abnormalities, going to OR and other pertinent info. @ -Discharged Patient was sent by Dr. Chappell diagnosed January 05 with extensive pulmonary emboli right main pulmonary artery to cervical segmental and subsegmental branches right lower lobe peripheral groundglass appearance possible pulmonary infarct. Patient had acetabular fracture playing on December 16 and had surgery prior to PE diagnosis. Mom states was discharged yesterday on Eliquis. Did have one episode of hemoptysis yesterday dime size and again this morning. EKG interpreted by me shows ventricular rate of 84, NC interval 0.162, QRS 0.101, QTC 0.376, sinus rhythm no concerning change compared to old dated 01/06/2023 CBC normal. Electrolytes are unremarkable. No evidence of leukocytosis. INR 1.2. Platelets 245. Radiologist impression diffuse consolidation appreciated throughout the right lower lobe. Patient with no complaints of dyspnea. No other abnormal bleeding. No fevers. At discharge patient did spike a fever therefore patient will be treated for pneumonia. This is likely hospital-acquired therefore levofloxacin was given a nd prescribed. Blood cultures were drawn. Pulse oximeter 99% on room air. No dyspnea. No further hemoptysis. He was directed to continue taking eliquis. He was encouraged to use his incentive spirometer. Follow up with his primary care doctor next week. Return to the emergency room with any new or concerning symptoms. Referral given to pulmonology. Mom and patient are agreeable to this plan of care. Case discussed with Dr. Ballesteros Undiagnosed new problem with uncertain prognosis? @ -No Drug Therapy requiring intensive monitoring for toxicity (Heparin, Nitro, Insulin, Cardizem)? @ -No Were any procedures done? @ -No Diagnosis/symptom? @ -Hospital acquired Pneumonia Acute, or Chronic, or Acute on Chronic? @ -Acute Uncomplicated (without systemic symptoms) or Complicated (systemic symptoms)? @ -Complicated Side effects of treatment? @ -No Exacerbation, Progression, or Severe Exacerbation? @ -No Poses a threat to life or bodily function? How? (Chest pain, [place], [place], pneumonia, PE, COPD, DKA, ARF, appy, cholecystitis, CVA, Diverticulitis, Homicidal, Suicidal, threat to staff... and all critical care pts) @ -No - Lab Data Result diagrams: 01/08/23 16:51 01/08/23 16:51 Lab Results 01/08/23 01/08/23 01/08/23 Range/Units 16:51 16:51 16:51 WBC 8.6 (4.0-11.0) k/uL RBC 3.98 L (4.30-5.90) m/uL Hgb 12.8 L (13.0-17.5) gm/dL Hct 38.1 L (39.0-53.0) % MCV 95.6 (80.0-100.0) fL MCH 32.1 (25.0-35.0) pg MCHC 33.6 (31.0-37.0) g/dL RDW 12.3 (11.5-15.5) % Plt Count 245 (150-450) k/uL MPV 7.8 Neutrophils % 82 % Lymphocytes % 8 % Monocytes % 8 % Eosinophils % 1 % Basophils % 0 % Neutrophils # 7.0 (1.3-7.7) k/uL Lymphocytes # 0.7 L (1.0-4.8) k/uL Monocytes # 0.7 (0-1.0) k/uL Eosinophils # 0.1 (0-0.7) k/uL Basophils # 0.0 (0-0.2) k/uL PT 12.3 H (9.0-12.0) sec INR 1.2 H (<1.2) APTT 34.6 H (22.0-30.0) sec Sodium 134 L (137-145) mmol/L Potassium 5.1 (3.5-5.1) mmol/L Chloride 93 L (98-107) mmol/L Carbon Dioxide 29 (22-30) mmol/L Anion Gap 12 mmol/L BUN 18 (9-20) mg/dL Creatinine 0.93 (0.66-1.25) mg/dL Est GFR (CKD-EPI)AfAm >90 (>60 ml/min/1.73 sqM) Est GFR (CKD-EPI)NonAf >90 (>60 ml/min/1.73 sqM) Glucose 98 (74-99) mg/dL Calcium 9.4 (8.4-10.2) mg/dL Magnesium 2.0 (1.6-2.3) mg/dL Total Bilirubin 0.7 (0.2-1.3) mg/dL AST 19 (17-59) U/L ALT 14 (4-49) U/L Alkaline Phosphatase 60 (38-126) U/L Total Protein 7.7 (6.3-8.2) g/dL Albumin 4.1 (3.5-5.0) g/dL Disposition Clinical Impression: Pulmonary embolism on right, Hemoptysis, Pneumonia Disposition: HOME SELF-CARE Condition: Good Instructions (If sedation given, give patient instructions): Pulmonary Embolism (ED), Coughing Up Blood (Hemoptysis) (ED), Pneumonia (ED) Additional Instructions: Continue taking the eliquis as prescribed. Use the incentive spirometer once an hour. Return to emergency room if any difficulty in breathing, abnormal bleeding or fevers. Follow-up with your primary care doctor and position classification specialist next week Prescriptions: Levofloxacin [Levaquin] 750 mg PO DAILY 5 Days #5 tab Is patient prescribed a controlled substance at d/c from ED?: No Referrals: Kashif Gallegos DO [Doctor of Osteopathic Medicine] - 1-2 days None,Stated [Primary Care Provider] - 1-2 days Whitney Mendoza MD [STAFF PHYSICIAN] - 1-2 days Time of Disposition: 18:20
[2023-01-08 17:08] LABS: Basophils % (A) 0 %; Eosinophils # (A) 0.1 k/uL (0-0.7); Eosinophils % (A) 1 %; HCT 38.1 % (39.0-53.0); HGB 12.8 gm/dL (13.0-17.5); Lymphocytes # (A) 0.7 k/uL (1.0-4.8); Lymphocytes % (A) 8 %; MCH 32.1 pg (25.0-35.0); MCHC 33.6 g/dL (31.0-37.0); MCV 95.6 fL (80.0-100.0); Mean Platelet Volume 7.8; Monocytes # (A) 0.7 k/uL (0-1.0); Monocytes % (A) 8 %; Neutrophils % (A) 82 %; Platelet Count 245 k/uL (150-450); RBC 3.98 m/uL (4.30-5.90); RDW 12.3 % (11.5-15.5); WBC 8.6 k/uL (4.0-11.0)
[2023-01-08 17:19] LABS: ALT 14 U/L (4-49); AST 19 U/L (17-59); African American GFR (CKD) >90 (>60 ml/min/1.73 sqM); Albumin 4.1 g/dL (3.5-5.0); Alkaline Phosphatase 60 U/L (38-126); Anion Gap 12 mmol/L; Blood Urea Nitrogen 18 mg/dL (9-20); Calcium 9.4 mg/dL (8.4-10.2); Carbon Dioxide 29 mmol/L (22-30); Chloride 93 mmol/L (98-107); Glucose 98 mg/dL (74-99); Non-African American GFR(CKD) >90 (>60 ml/min/1.73 sqM); Potassium 5.1 mmol/L (3.5-5.1); Sodium 134 mmol/L (137-145); Total Bilirubin 0.7 mg/dL (0.2-1.3); Total Protein 7.7 g/dL (6.3-8.2)
[2023-01-08 17:23] LABS: INR 1.2 (<1.2); Partial Thromboplastin Time 34.6 sec (22.0-30.0); Prothrombin Time 12.3 sec (9.0-12.0)
--- NOTE | 2023-01-08 17:49 | XR ---
EXAMINATION: XR chest 2V: 01/08/2023 5:28 PM CLINICAL INDICATION: difficulty breathing TECHNIQUE: Departmental protocol COMPARISON: Outside CT chest 01/05/2023. This CT showed bilateral large pulmonary emboli, right greate r than left, with flattening of the interventricular septum suggesting elevated right heart pressures . FINDINGS: Note: The comparison 01/05/2023 CT showed bilateral large pulmonary emboli, right greater than left, w ith flattening of the interventricular septum suggesting elevated right heart pressures. The right lower lobe shows diffuse consolidative opacity. Remainder of the lung parenchyma clear and well expanded bilaterally. The pleural spaces are negative. EKG leads. The cardiac silhouette is not enlarged. The remainder of the mediastinal silhouette is unr emarkable. The skeletal structures and soft tissues are negative for acute findings. IMPRESSION: Diffuse consolidative opacity throughout the right lower lobe.
[2023-01-08] MEDS ORDERED: LEVOFLOXACIN 750MG-D5W PMX 750 MG in DEXTROSE/WATER 1 150ML.BAG IVPB STA (18:44)
[2023-01-08 18:56] VITALS: TEMP 101.8
[2023-01-08] MEDS ORDERED: oxyCODONE-APAP 10-325MG 1 EACH TAB PO STA (21:01)
[2023-01-08 21:23] VITALS: BP 120/62; PULSE 98; RESP 18
== END 2023-01-08 21:23 | disposition home or self-care (01) ==
LOC: EC 12:54
DX: R04.2 Hemoptysis (principal); I26.99 Other pulmonary embolism without acute cor pulmonale; J18.9 Pneumonia, unspecified organism; Z88.8 Allergy status to other drugs, medicaments and biological substances
CPT/HCPCS: 36415; 93005; 80053; 83735; 85025; 85610; 85730; 87040; 71046; 99285; 96365; 96366; 96375 ×2; J3010; J1956